=== PATIENT | female | born 1945 | race Caucasian/White ===

== ENCOUNTER → 2020-12-14 | Outpatient (CLI) | payer MEDICARE ==
[~2020-12-14] MED LIST: ACET-897 PO; ADV500INH INH; D200CAP PO; HYDR-3363 PO; HYDR-3910 PO; OMEP-218 PO; PROAAER10 INH; SIMV20TA22 PO; SYNT88TA2 PO; VITA500C19 PO; ZINC1TAB2 PO
--- NOTE | 2020-12-14 16:02 | REP ---
INDICATION: SOLITARY PULMONARY NODULE. COMPARISON: Outside chest CT dated 08/02/2020. TECHNIQUE: Chest CT without IV contrast. FINDINGS: There is a 6 mm lung nodule posteriorly in the right upper lobe on image 24 with linear stranding to the posterior pleura, not present on the comparison study. This is a category 3 lung lesion and follow-up chest CT for this nodule is recommended in 3 months. There are no other lung nodules or masses. There are no infiltrates or effusions. The bibasilar atelectasis identified previously has significantly improved almost entirely resolved. 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 There is no evidence of bowel strangulation or obstruction. There is no mediastinal or axillary lymph node enlargement. In the absence of IV contrast the study is insensitive for hilar lymph node enlargement. The unenhanced thoracic aorta is unremarkable except for occasional calcified atheroma. Cardiac size is normal. There is no pericardial effusion. Upper abdomen: The visualized areas of the unenhanced liver, pancreas and spleen are unremarkable except for a focal round 12 mm hypodensity in the hepatic left lobe, unchanged, likely benign such as a cyst or hemangioma. There is no adrenal nodule or mass. IMPRESSION: There is a new 6 mm right upper lobe lung nodule as described above. Six month follow-up chest CT is recommended for this nodule. The bibasilar atelectasis has significantly improved. There is fibrolinear scarring in the lower lobes bilaterally. Large right hemidiaphragm Morgagni hernia without evidence of bowel strangulation or obstruction. <Electronically signed by Rahul Sierra > 12/14/20 [id number]
== END ==
LOC: M RAD 13:14
PROVIDERS: ATTEND Physician Assistant
DX: R91.1 Solitary pulmonary nodule (principal)

== ENCOUNTER → 2020-12-26 | Outpatient (CLI) | payer MEDICARE, OTHER | LOC: M LABSMTC 09:31 | PROVIDERS: ATTEND Anesthesiology | DX: Z01.812 Encounter for preprocedural laboratory examination (principal); Z20.822 Contact with and (suspected) exposure to COVID-19 ==

== ENCOUNTER 2020-12-31 06:11 | Inpatient (IN) | payer MEDICARE ==
[~2020-12-31] VITALS: Ht 160 cm; Wt 75.7 kg
[~2020-12-31 06:11] MED LIST changes: +CelecoXIB 400 MG CAP PO ONE; +HEPARIN SOD (PORCINE) 5000UNITS/ML 1ML VIAL/SYRINGE SQ ONE; +LR 1,000 ML IV ONE; +ceFAZolin SOD 2 GM in IV 1 EA IV ONE
[2020-12-31] MEDS ORDERED: fentaNYL 250 MCG/5 ML INJECTION (J3010) As Ordered ONE (06:47)
[2020-12-31] MEDS ORDERED: MIDAZOLAM INJ 2MG/2ML VIAL (J2250 PER 1MG) As Ordered ONE (06:48)
[2020-12-31] MEDS ORDERED: ROCURONIUM BROMIDE 50 MG/5 ML VIAL As Ordered ONE ×2 (06:48→08:57)
[2020-12-31] MEDS ORDERED: SUGAMMADEX SODIUM 500 MG/5 ML VIAL (BRIDION) As Ordered ONE (06:48)
[2020-12-31] MEDS ORDERED: LIDOCAINE 2% 100MG/5ML SDV (FOR ANES.) As Ordered ONE (06:48)
[2020-12-31] MEDS ORDERED: ONDANSETRON 4MG/2ML VIAL As Ordered ONE (06:48)
[2020-12-31] MEDS ORDERED: dexameTHASONE 4 MG/ML 1ML VIAL (J1100 PER 1MG) As Ordered ONE (06:48)
[2020-12-31] MEDS ORDERED: PHENYLephrine 500MCG 5ML (100MCG/ML) SYRINGE As Ordered ONE (06:49)
[2020-12-31] MEDS ORDERED: ACETAMINOPHEN 1000MG 100ML IV BTL (OFIRMEV) (J0131 PER 10MG) As Ordered ONE (06:49)
[2020-12-31] MEDS ORDERED: propofoL 200 MG/20 ML VIAL As Ordered ONE (06:49)
[2020-12-31] MEDS ORDERED: ePHEDrine SULFATE 25 MG/5 ML(5MG/ML) SYRINGE As Ordered ONE (06:49)
[2020-12-31] MEDS ORDERED: LIDOCAINE 1% SDV 30ML VIAL As Ordered ONE (07:09)
[2020-12-31] MEDS ORDERED: BUPIVACAINE HCL 0.25% 10ML VIAL As Ordered ONE (07:09)
[2020-12-31] MEDS ORDERED: BUPIVACAINE LIPOSOME/PF 1.3% 20ML VIAL (13.3MG/ML)(EXPAREL)(C9290 PER1MG) As Ordered ONE (07:10)
[2020-12-31] MEDS ORDERED: BUPIVACAINE HCL 0.25% 30ML VIAL As Ordered ONE (07:10)
[2020-12-31] MEDS ORDERED: HYDROmorphone HCL 2 MG/ML 1ML VIAL (J1170) As Ordered ONE (08:56)
[2020-12-31] MEDS ORDERED: ALBUTEROL 90 MCG/ACT 8GM HFA INHALER INH PRN (12:05)
[2020-12-31] MEDS ORDERED: ONDANSETRON 4MG/2ML VIAL IV PRN ×2 (12:05→12:15)
[2020-12-31] MEDS ORDERED: LR 1,000 ML IV SCH ×2 (12:05→12:15)
[2020-12-31] MEDS ORDERED: KETOROLAC 30 MG/ML 1ML VIAL IV PRN (12:05)
[2020-12-31] MEDS ORDERED: HYDROMORPHONE HCL 0.5 MG/ 0.5 ML SYRINGE (J1170 PER 1) IV PRN (12:15)
[2020-12-31] MEDS ORDERED: oxyCODONE 5MG TAB PO PRN (12:15)
[2020-12-31] MEDS ORDERED: fentaNYL 100 MCG/2 ML INJECTION (J3010) IV PRN (12:15)
[2020-12-31] MEDS ORDERED: METOCLOPRAMIDE INJ 10MG/2ML VIAL (J2765 PER 1) IV PRN (12:15)
--- NOTE | 2020-12-31 12:32 | REP ---
INDICATION: s/p diaphragmatic hernia repair COMPARISON: 09/13/2019 TECHNIQUE: Portable AP view of the chest FINDINGS: Mediastinum and cardiac silhouette are relatively stable. Ill-defined curvilinear markings in the right mid to lower lung zone consistent with diaphragmatic hernia and similar to findings on recent CT dated 12/14/2020. Trace right basilar atelectasis cannot be excluded. No effusion. No pneumothorax. IMPRESSION: Large right diaphragmatic hernia with findings similar to CT dated 12/14/2020 <Electronically signed by Andrews Akhtar > 12/31/20 1226
--- NOTE | 2020-12-31 12:48 | ROOPDOC ---
[facility] Report Of Operation Report of Operation DATE OF PROCEDURE: 12/31/20 PREPROCEDURE DIAGNOSES: Diaphragmatic hernia (Morgagni hernia) containing transverse colon. POSTPROCEDURE DIAGNOSES: Diaphragmatic hernia (Morgagni hernia) 6x3x 12(depth) cms . PROCEDURE: Robotic assisted laparoscopic repair of Morgagni/Diaphragmatic hernia(rTAPP 15x15 cms bradsoft mesh placed). SURGEON: Marv Osborne MD THERMOMETER MAKER: Patricia Coleman, ASSEMBLY MACHINE OPERATOR Ms. Coleman assisted me with placement of ports, management and adjustment of arms and instruments, mesh on the field while I was at the surgeons console ANESTHESIA: General Endotracheal Anesthesia. ESTIMATED BLOOD LOSS: Approximately 20 mL. COMPLICATIONS: none. REMARKS: 75 F with complaints of upper abdominal discomfort found to have a right sided anterior hernia consistent with a Morgagni type hernia. PROCEDURE NOTE: transverse colon and omentum within the hernia, easily reduced. wide peritoneal and transversalis flaps created, 6 cm width x 3 cm depth with over 12 cms intrathoracic depth/component, sac fully reduced, primary closure of defect to the abdominal/thoracic wall with nonabsorbable 0 vloc, 15 x 15 cms BardSoft midweight mesh placed. . DESCRIPTION OF PROCEDURE Patient received a dose of cefazolin 2 g IV preoperatively for wound prophylaxis. She was given Celebrex 400 mg by mouth, heparin 5000 units subcutaneously for DVT prophylaxis. She was brought to the operating room, placed supine on the table. TEDs and compression boots placed on bilateral lower extremities for additional DVT prophylaxis. Gen. endotracheal anesthesia started. A Kruse catheter was placed for perioperative monitoring. Both arms were tucked. Her abdomen widely prepped and draped in the usual sterile fashion. We paused for a surgical timeout using both pre-incision safety checklist to verify correct patient, procedure site and additional cl inical information prior to beginning the procedure I entered the abdomen slightly to the left of the umbilicus with a Veress needle. Intra-abdominal placement confirmed with saline drop technique. CO2 insufflation and started to pressure 15 mmHg. I initially inserted a 5 mm optical trocar with direct vision of the laparoscope into the abdomen. Incision site was inspected for injury and none was found. She was initially placed at 10 reverse Trendelenburg position. The anterior diaphragmatic defect is noted containing transverse colon. I established my ports. I used 4 8 mm ports. I placed along the same line as the umbilicus 12 cm apart. The da Katie robot was then positioned in place and the trocar stopped to the robot. The instruments were placed under direct vision. I then unscrubbed and took control of the camera and instruments at the surgeons console. Rosa Montesinos. remained in the surgical field to adjust the robotic arms, instrument exchange and later on with the mesh. I started by reducing the hernia contents, namely the transverse colon and the omentum back into the abdomen. This reduced easily. Are reviewed adhesions of the omentum to the sac which was easily divided. Once accomplished, I placed her on the 5 reverse Trendelenburg position just for adequate visualization with may port placement. He started creating my peritoneal flap roughly about 6 or 7 cm from the edge of the hernia defect. This was extended laterally in both the right and left sides to create a wide flap as we approach the hernia. The hernia sac was reduced into the abdominal cavity. At this point at the rim of where the diaphragm inserts and I states with the transverses abdominis I divided the transversalis fascia to get into the pre-transversalis plain laterally on each side and further developed my flaps laterally and superiorly using the transverses abdominis muscle and later on the diaphragm as my Keturah with the peritoneum/transversalis and preperitoneal fat being displaced downwards away from the abdominal wall and diaphragm. As I approach the midline reinserted Moreno in the per past the sac and behind the previous xiphoid adiposity this always that her to get back into the preperitoneal plane. There were a couple of smaller defects created as I was trying to get back to the right plane. There is also some thinning of the peritoneum at the left lateral flap and a get up higher to the pre-transversalis plain to accommodate service and make a wider flap. I then further developed my plane superiorly releasing the peritoneum from the central tendon of the diaphragm to get an adequate superior overlap. I measured a superior overlap of 6 cm. Hernia defect was then closed opposing the edge of the diaphragm to the anterior abdominal/thoracic wall with a running 0 nonabsorbable V LOC 18 inches which I came across the hernia twice. The per preperitoneal space was then measured. I placed a 15 x 15 cm Bard soft midweight polypropylene mesh and this was secured in several areas with a 2-0 Vicryl laid flat and rightward the superior aspect a s well as where the central tendon as. This was secured with Tisseel glue. MARV OSBORNE MD Dec 31, 2020 12:48
[2020-12-31 13:30] VITALS: BP 154/94
[2020-12-31 14:00] VITALS: BP 153/78
[2020-12-31 15:00] VITALS: BP 150/78
[2020-12-31 16:00] VITALS: BP 140/71
[2020-12-31 17:00] VITALS: BP 135/70
[2020-12-31 21:00] VITALS: BP 136/76
[2020-12-31] MEDS: PERCOCET 5MG/325MG TAB PO PRN (21:25)
[2021-01-01] MEDS: ACETAMINOPHEN TAB 650MG DOSE (2X325MG) PO PRN ×3 (00:34→20:49)
[2021-01-01 01:49] VITALS: BP 138/77
[2021-01-01 06:00] VITALS: BP 130/72
[2021-01-01 06:48] LABS: BASO % 0.1 % (0.0-1.0); EOS % 0.1 % (0.0-3.0); HEMOGLOBIN 10.9 g/dl (12.0-15.5); LYMPH # 1.5 10^3/uL (1.5-5.0); LYMPH % 20.8 % (24.0-44.0); MEAN CORPUSCULAR HEMOGLOBIN 33.1 pg (27.0-33.0); MEAN CORPUSCULAR HGB CONC 32.1 g/dl (32.0-36.5); MEAN CORPUSCULAR VOLUME 103.3 fl (80.0-96.0); MONO # 0.7 10^3/uL (0.0-0.8); MONO % 9.4 % (2.0-8.0); NEUTROPHILS % 69.3 % (36.0-66.0); PLATELET COUNT, AUTOMATED 247 10^3/uL (150-450); RED BLOOD COUNT 3.29 10^6/uL (4.00-5.40); WHITE BLOOD COUNT 7.2 10^3/uL (4.0-10.0)
[2021-01-01] MEDS: SENOKOT S TAB PO SCH (08:27)
[2021-01-01] MEDS: PERCOCET 5MG/325MG TAB PO PRN (08:28)
--- NOTE | 2021-01-01 08:31 | REP ---
INDICATION: post diaphragmatic repair, ffup COMPARISON: 12/31/2020 TECHNIQUE: PA and lateral. FINDINGS: The previously noted right sided diaphragmatic hernia appears to be improved. Right base now demonstrates small air-fluid levels and small pleural effusion along with trace right basilar atelectasis. Minimal left basilar atelectasis and small left pleural reaction cannot be excluded as well. No further consolidation. No obvious pneumothorax. The cardiac silhouette is normal. IMPRESSION: Bibasilar findings as described above. Follow-up is recommended. <Electronically signed by Andrews Akhtar > 01/01/21 0856
[2021-01-01 10:00] VITALS: BP 135/73
--- NOTE | 2021-01-01 11:44 | IPNPDOC ---
Text Note Date of Service The patient was seen on 01/01/21. NOTE Patient seen this morning. Was complaining of headaches overnight but otherwise denies any chest pain, abdominal pain, shortness of breath. She is reporting some coughing/irritation on her throat, mild whitish productive cough. No fevers or chills. Vital signs MAXIMUM TEMPERATURE 98.62 current 98.6 at 10 AM pulse rate 76 respiratory rate 20 blood pressure 135/73 91% at room air Examination Patient sitting up in a wheelchair when I saw her getting ready for a chest x-ray, she looks comfortable. No jugular venous distention Regular heart rate and rhythm Lung sounds with fine crackles at the posterior basal areas in both sides, patient has shallow non-labored respiratory effort Abdomen is soft, nondistended. Port sites with Dermabond, no drainage. No significant extremity edema Impression and plan She is postop day 1 after robotic-assisted laparoscopic repair of a Morgagni diaphragmatic hernia via rTAPP She looks to be doing well. We'll take a follow-up chest x-ray today. I encouraged her to take deep breathing exercises and use the incentive spirometer and encourage deep breathing exercises. VS,Fishbone, I+O VS, Fishbone, I+O Laboratory Tests 01/01/21 06:11 Vital Signs Date Time Temp Pulse Resp B/P (MAP) Pulse Ox O2 Delivery O2 Flow Rate FiO2 01/01/21 10:00 98.6 76 20 135/73 (93) 91 Room Air 12/31/20 12:03 10.0 I&O- Last 24 Hours up to 6 AM 01/01/21 06:00 Intake Total 3160 ml Output Total 1170 ml Balance 1989 ml PADMAJA JUDGE MD Jan 01, 2021 11:44
[2021-01-01 14:00] VITALS: BP 137/74
[2021-01-01 22:00] VITALS: BP 112/59
[2021-01-02 06:00] VITALS: BP 129/77
--- NOTE | 2021-01-02 08:02 | IPNPDOC ---
Subjective Date Seen The patient was seen on 01/02/21. Subjective Chief Complaint/HPI HPI: Pt was seen this am at chair side this am. She states that her throat irritation is improving. No acute events overnight. She denies any chest pain, SOB, lower extr swelling. She states that she feels sore in the abdominal region and where her surgical incisions are. No pus or bruising seen. Physical Exam Vitals signs: see below Gen: Looks well hydrated, nourished, NAD, AAOx3 sitting in her chair Cardio: NSR, no m/g/r Pulm: Good inspiratory effort. a few crackles heard at the Lower L lung base, mild wheeze at the lower R lung base. still some mild diminished lung sounds Abd: Soft, non tender, non distended, NBS in all quadrants Extr/Skin: No cyanosis, clubbing or bruising seen. The sites of the lap incisions look erythematous but without pus or drainage. Does not look infected Assessment and Plan She is s/p day 2 from a lap repair of a Morgagni diaphragmatic hernia repair via robotic transabdominal preperitoneal (rTAPP). Shes doing well and looks well- nourished and hydrated. XR chest yesterday shows atelectasis. Pt continues to use the incentive spirometry; however, was not using it properly after assessment. She was instructed on the correct technique this am. There have been no acute events overnight reported by patient or nursing. She's passing flatus and is able to have bowel movements. Disposition: Continue to advance diet as tolerated and d/c today if continues to do well. F/u outpt within 2 weeks after discharge VS, I&O, 24H, Fishbone Vital Signs/I&O Vital Signs Date Time Temp Pulse Resp B/P (MAP) Pulse Ox O2 Delivery O2 Flow Rate FiO2 01/02/21 06:00 97.5 80 20 129/77 (94) 92 Room Air 01/01/21 21:00 10.0 I&O- Last 24 Hours up to 6 AM 01/02/21 06:00 Intake Total 1070 ml Output Total 400 ml Balance 670 ml GME ATTESTATION GME ATTESTATION My faculty preceptor for this patient encounter was physically present during the encounter and was fully available. All aspects of the patient interview, examination, medical decision making process, and medical care plan development were reviewed and approved by the faculty preceptor. The faculty preceptor is aware and concurs with the plan as stated in the body of this note and will attest to such by his/her cosignature. GME ATTESTATION GME ATTESTATION My faculty preceptor for this patient encounter was physically present during the encounter and was fully available. All aspects of the patient interview, examination, medical decision making process, and medical care plan development were reviewed and approved by the faculty preceptor. The faculty preceptor is aware and concurs with the plan as stated in the body of this note and will attest to such by his/her cosignature. Khang Jha DO Jan 02, 2021 07:39
[2021-01-02] MEDS: SENOKOT S TAB PO SCH (08:07)
--- NOTE | 2021-01-02 09:54 | DS.PDOC ---
Discharge Summary General Date of Admission Dec 31, 2020 at 06:11 Date of Discharge December Attending Physician: PADMAJA JUDGE MD Discharge Summary PROCEDURES PERFORMED DURING STAY: Robotic assisted laparoscopic repair of diaphragmatic/Morgagni type hernia (rTAPP). ADMITTING DIAGNOSES: 1. diaphragmatic/Mrogagni hernia 2. COPD. DISCHARGE DIAGNOSES: 1. diaphragmtic/Morggni hernia 2. COPD. COMPLICATIONS/CHIEF COMPLAINT: Diaphragmatic Hernia. HISTORY OF PRESENT ILLNESS: Patient complains of vague upper abdominal discomfort and found to have a fairly large right anterior diaphragmatic hernia containing her transverse colon. She is set up for robotic/laparoscopic repair of her hernia. HOSPITAL COURSE: . DISCHARGE MEDICATIONS: Please see below. ALLERGIES: Please see below. PHYSICAL EXAMINATION ON DISCHARGE: VITAL SIGNS: Please see below. GENERAL: HEENT: NECK: CARDIOVASCULAR EXAMINATION: RESPIRATORY EXAMINATION: ABDOMINAL EXAMINATION: EXTREMITIES: SKIN: NEUROLOGICAL EXAMINATION: PSYCHIATRIC EXAMINATION: LABORATORY DATA: Please see below. IMAGING: follow up cxr PROGNOSIS: ACTIVITY: [As tolerated]. DIET: DISCHARGE PLAN: DISPOSITION: . DISCHARGE INSTRUCTIONS: 1. . ITEMS TO FOLLOWUP ON ON OUTPATIENT: 1. . DISCHARGE CONDITION: [Stable]. TIME SPENT ON DISCHARGE: Greater than minutes. Vital Signs/I&Os Vital Signs Date Time Temp Pulse Resp B/P (MAP) Pulse Ox O2 Delivery O2 Flow Rate FiO2 01/02/21 06:00 97.5 80 20 129/77 (94) 92 Room Air 01/01/21 21:00 10.0 I&O- Last 24 Hours up to 6 AM 01/02/21 05:59 Intake Total 920 ml Output Total 400 ml Balance 520 ml Discharge Medications Scheduled Acetaminophen (Tylenol Extra Strength) 500 Mg Tablet, 1,000 MG PO QHS, (Reported) Albuterol Sulfate (Proair Hfa) 8.5 Gm Hfa.aer.ad, 2 PUFF INH PRN, (Reported) Ascorbic Acid (Vitamin C) 500 Mg Capsule.er, 500 MG PO DAILY, (Reported) Cholecalciferol (Vitamin D3) (Vitamin D3) 50 Mcg Capsule, 50 MCG PO DAILY, (Reported) Hydroxyzine HCl (Hydroxyzine HCl) 25 Mg Tablet, 25 MG PO BID, (Reported) Levothyroxine Sodium (Synthroid) 88 Mcg Tablet, 88 MCG PO DAILY, (Reported) Omeprazole (Omeprazole) 20 Mg Capsule.dr, 20 MG PO BID, (Reported) Salmeterol/Fluticasone (Advair 500-50 Diskus) 1 Each Blst.w.dev, 1 PUFF INH BID, (Reported) Simvastatin (Simvastatin) 20 Mg Tablet, 20 MG PO DAILY, (Reported) Zinc (Zinc) 50 Mg Tablet, 50 MG PO DAILY, (Reported) Allergies Coded Allergies: No Known Allergies (Unverified , 12/17/20) PADMAJA JUDGE MD Jan 02, 2021 09:54
== END 2021-01-02 10:30 | disposition home or self-care (01) | DRG 354 ==
LOC: M OR 06:11 → M MS5PR 13:15
PROVIDERS: ADMIT Surgery; ATTEND Surgery
PROC: 8E0W4CZ Robotic Assisted Procedure of Trunk Region, Percutaneous Endoscopic Approach (ICD-10-PCS; 2020-12-31)
PROC: 0WUF4JZ Supplement Abdominal Wall with Synthetic Substitute, Percutaneous Endoscopic Approach (ICD-10-PCS; principal; 2020-12-31 07:30)
DX: K44.9 Diaphragmatic hernia without obstruction or gangrene (principal); J98.11 Atelectasis; J44.9 Chronic obstructive pulmonary disease, unspecified; Z79.899 Other long term (current) drug therapy

== ENCOUNTER → 2021-02-06 | Outpatient (CLI) | payer MEDICARE ==
[~2021-02-06] MED LIST changes: -CelecoXIB 400 MG CAP PO ONE; -HEPARIN SOD (PORCINE) 5000UNITS/ML 1ML VIAL/SYRINGE SQ ONE; -LR 1,000 ML IV ONE; -ceFAZolin SOD 2 GM in IV 1 EA IV ONE
--- NOTE | 2021-02-06 12:51 | REP ---
INDICATION: DIAPHRAGMATIC HERNIA WITHOUT OBSTRUCTION OR GANGRENE COMPARISON: 01/01/2021 TECHNIQUE: PA and lateral. FINDINGS: The mediastinum and cardiac silhouette are normal. The lung bell suggest mild chronic linear fibroatelectatic changes at the bases. No acute consolidation, effusion, or pneumothorax. The skeletal structures are intact and normal. IMPRESSION: No acute cardiopulmonary process. <Electronically signed by Andrews Akhtar > 02/06/21 [id number]
== END ==
LOC: M RAD 12:22
PROVIDERS: ATTEND Surgery
DX: J98.4 Other disorders of lung (principal)

== ENCOUNTER → 2021-06-24 | Outpatient (CLI) | payer MEDICARE ==
--- NOTE | 2021-06-24 14:06 | REP ---
INDICATION: ABN FINDING OF LUNG COMPARISON: 12/14/2020 TECHNIQUE: Axial noncontrast images from the thoracic inlet to the upper abdomen with coronal and sagittal reformations. This CT examination was performed using the following dose reduction techniques: Automated exposure control, adjustment of mA and/or kv according to the patient's size, and use of iterative reconstruction technique. FINDINGS: The bilateral lung bell demonstrate chronic emphysematous changes along with scattered fibrolinear scarring primarily involving the lingula and lower lobes with scattered bronchiectasis essentially unchanged from prior examination. The 6 mm nodular density in the right upper lobe with linear scarring to the subpleural lining remains stable and likely represent small scar. No new acute consolidation. No effusion. No pneumothorax. Mediastinum demonstrates stable atherosclerotic changes to the thoracic aorta and coronary arteries without aortic aneurysm or cardiomegaly. No pericardial effusion. No significant axillary, hilar, or mediastinal adenopathy. Surrounding musculoskeletal structures demonstrate age-related changes without acute osseous abnormality. Limited upper abdomen demonstrates normal bilateral adrenal glands. IMPRESSION: 1. Chronic appearing changes including stable 6 mm nodule in the right upper lobe. Annual low-dose CT surveillance based on high risk factors may be warranted. 2. No acute mediastinal or pleuroparenchymal process appreciated. <Electronically signed by Andrews Akhtar > 06/24/21 [id number]
== END ==
LOC: M RAD 13:31
PROVIDERS: ATTEND Internal Medicine Pulmonary Disease
DX: R91.8 Other nonspecific abnormal finding of lung field (principal)

== ENCOUNTER → 2022-01-01 | Outpatient (CLI) | payer MEDICARE ==
[~2022-01-01] MED LIST changes: +OMEP-173 PO; -OMEP-218 PO
== END ==
LOC: M RAD 13:26
PROVIDERS: ATTEND Internal Medicine Pulmonary Disease
DX: R91.8 Other nonspecific abnormal finding of lung field (principal)

== ENCOUNTER → 2022-03-10 | Outpatient (CLI) | payer MEDICARE | LOC: M PLARAD 10:27 | PROVIDERS: ATTEND Internal Medicine Pulmonary Disease | DX: R91.8 Other nonspecific abnormal finding of lung field (principal) | CPT/HCPCS: 78815; A9552 ==

== ENCOUNTER → 2023-04-14 | Outpatient (CLI) | payer MEDICARE | LOC: M RAD 12:25 | PROVIDERS: ATTEND Internal Medicine Pulmonary Disease | DX: I25.10 Atherosclerotic heart disease of native coronary artery without angina pectoris (principal); R91.8 Other nonspecific abnormal finding of lung field ==